=== PATIENT | male | born 1985 | race Caucasian/White ===

== ENCOUNTER 2024-05-03 13:49 | Emergency (ER) | payer OTHER, SELFPAY ==
--- NOTE | 2024-05-03 14:00 | ED.URI ---
HPI - URI/Sore Throat General Chief Complaint: Upper Respiratory Infection Stated Complaint: Strep Symptoms Time Seen by Provider: 05/03/24 14:00 History of Present Illness HPI Narrative: 38-year-old male presented for complaint of sore throat, headache, nasal drainage and cough. Onset 2 days. Endorses exposure to strep. Denies shortness of breath, wheezing nausea vomiting or lethargy. Related Data Home Medications Medication Instructions Recorded Confirmed No Home Medications 05/03/24 05/03/24 Review of Systems Review of Systems: ROS per HPI Exam Narrative: GENERAL: well-appearing, no acute distress. EYES: conjunctivae clear ENT: Mucous membranes moist. TMs pearly henderson with normal light reflex bilaterally; no tragal tenderness. Oropharynx erythematous without lesions. Tonsils not enlarged and without exudate. No drooling, no hoarseness, no trismus, uvula midline. No tripod positioning, hot potato voice, or soft palate swelling. NECK: Supple. No lymphadenopathy CHEST: Clear to auscultation, breath sounds equal. No respiratory distress, speaks in full sentences. HEART: Regular rate and rhythm. No murmur heard. SKIN: Warm, dry, no rash. NEURO: Alert and oriented x3. Course Course Emergency Course: Patient is aware of diagnosis, understands and agrees to treatment plan. Anticipatory guidance given. Patient agrees to follow-up as directed and is aware of reasons to seek care at the emergency department. Portions of this record may have been created with voice recognition software Level of Care: Express Care Visit Vital Signs Vital signs: Vital Signs Temperature 97.9 F 05/03/24 14:01 Pulse Rate 83 05/03/24 14:01 Respiratory Rate 15 05/03/24 14:01 Blood Pressure 122/87 05/03/24 14:01 Pulse Oximetry 98 05/03/24 14:01 Oxygen Delivery Room Air 05/03/24 14:01 Temperature 97.9 F 05/03/24 14:01 Pulse Rate 83 05/03/24 14:01 Respiratory Rate 15 05/03/24 14:01 Blood Pressure 122/87 05/03/24 14:01 Pulse Oximetry 98 05/03/24 14:01 Oxygen Delivery Room Air 05/03/24 14:01 MDM - URI/Sore Throat MDM Narrative Medical decision making narrative: neg strep result reviewed with pt. Advise supportive treatments. Patient is appropriate for outpatient treatment and follow-up. Differential Diagnosis Differential diagnosis: Likely upper respiratory infection, viral infection and pharyngitis Lab Data Labs: Strep Screen Presumptive Negative *(Reference Range: Negative)* Discharge Plan Discharge Clinical Impression: Upper respiratory infection Patient Disposition: Home, Self-Care Condition: Stable Instructions: Antibiotic Form, Upper Respiratory Infection (ED) Additional Instructions: Rapid strep swab was negative today You will be notified in a few days if the culture comes back positive for strep, and appropriate antibiotics will be called in at that time. if symptoms are due to a viral illness, it is not treated with antibiotics. Viral symptoms can be present for up to 10-14 days. Recommend Flonase spray and Zyrtec for sinus congestion Cough syrup may cause drowsiness; avoid driving or take it at night time. Tylenol every 8 hours as needed for pain/fever Soft foods, cool liquids, warm tea. Gargle with warm saltwater twice a day. Chloraseptic spray and throat lozenges. Rest and stay hydrated. --Follow up with your PCP --Go to the ER immediately if you cannot swallow your saliva, trouble breathing/wheezing, throat swelling, pain is persistent and severe Prescriptions: No Action No Home Medications Follow-up/Referrals: Todd,TRISTON Cooley [Primary Care Provider] - Time of Disposition: 14:10
[2024-05-03 14:01] VITALS: BP 122/87; PULSE 83; RESP 15; TEMP 36.6; O2SAT 98
== END 2024-05-03 14:13 | disposition home or self-care (01) ==
PROVIDERS: Emergency Provider Nurse Practitioner Family; PCP Physician Assistant
DX: J06.9 Acute upper respiratory infection, unspecified (principal)
CPT/HCPCS: 87081; 87880; 99213; G0463

== ENCOUNTER 2025-08-07 08:54 | Outpatient (CLI) | payer BC, OTHER, SELFPAY ==
--- NOTE | ~2025-08-07 | US_ITS ---
US soft tissue UE RT 08/07/2025 09:27 Indication: Palpable mass right shoulder Procedure: Soft tissue ultrasound of the right shoulder in the area of palpable concern Comparison: No prior studies for comparison. Findings: In the area of palpable concern there is an oval encapsulated hypoechoic mass with horizontally striations, no internal vascularity and subtle posterior acoustic enhancement measuring 3.3 x 0.7 x 2.4 cm. No other masses are identified. Impression: 1: Oval circumscribed hypoechoic 3.3 cm right shoulder mass corresponding to the palpable area. Findings compatible with benign lipoma. No follow-up required unless there are clinical changes. Reviewed, dictated and finalized at location O. Impression: 1: Oval circumscribed hypoechoic 3.3 cm right shoulder mass corresponding to th e palpable area. Findings compatible with benign lipoma. No follow-up required unless there are clinical changes.
== END 2025-08-07 08:55 | disposition home or self-care (01) ==
LOC: MICIMG 08:55
PROVIDERS: PCP Physician Assistant; Visit Provider Physician Assistant
DX: R22.9 Localized swelling, mass and lump, unspecified (principal); M79.89 Other specified soft tissue disorders
CPT/HCPCS: 76882